=== PATIENT | male | born 1985 | race Two or more races ===

== ENCOUNTER 2016-06-21 15:20 | Emergency (ER) | payer SELFPAY ==
[2016-06-21] MEDS ORDERED: IBUPROFEN 600 MG TABLET ONE (17:46)
[2016-06-21] MEDS ORDERED: ACETAMINOPHEN 325 MG TABLET ONE (17:47)
--- NOTE | 2016-06-21 17:49 | RAD ---
Name: YOLI SWENSON Exam: Right shoulder Comparison: None Clinical history: Right shoulder pain for one month. Prior trauma. Limited range of motion. Findings: 3 radiographs of the right shoulder are submitted. Bone density is normal. Acromioclavicular, coracoclavicular and glenohumeral joints are normal. Subacromial space is maintained. There is no fracture, dislocation or suspicious soft tissue calcification. Visualized portion of the right lung is clear Impression: Negative right shoulder
== END 2016-06-21 18:07 | disposition home or self-care (01) ==
LOC: ED 15:20
DX: M25.511 Pain in right shoulder (principal); F17.210 Nicotine dependence, cigarettes, uncomplicated; V19.9XXA Pedal cyclist (driver) (passenger) injured in unspecified traffic accident, initial encounter; Y93.55 Activity, bike riding; Y92.9 Unspecified place or not applicable
CPT/HCPCS: 73030; 99283 ×2; A9270 ×2